=== PATIENT | male | born 1975 | race Caucasian/White ===

== ENCOUNTER 2021-03-09 14:05 | Observation (INO) ==
[2021-03-09] MEDS ORDERED: PANTOPRAZOLE 40 MG VIAL IV STA (15:16)
[2021-03-09] MEDS ORDERED: ONDANSETRON 4 MG/2 ML VIAL IV STA (15:16)
[2021-03-09] MEDS ORDERED: METOCLOPRAMIDE 10 MG/2 ML VIAL IV STA (15:16)
[2021-03-09] MEDS ORDERED: MORPHINE 4 MG/1 ML VIAL IV STA ×2 (15:16→17:18)
[2021-03-09] MEDS ORDERED: SODIUM CHLORIDE 0.9% 1,000 ML IV STA (15:16)
[2021-03-09 15:34] LABS: Basophils % 0.4 % (0.0-0.8); Eosinophils # 0.1 10*3/uL (0.0-0.87); Eosinophils % 0.6 % (0.00-10.9); Hematocrit 46.2 VOL% (42.0-52.0); Hemoglobin 15.4 GM/DL (14.0-18.0); Immature Granulocytes % 0.4 %; Immature Granulocytes Absolute 0.04 #; Lymphocytes # 1.3 10*3/uL (1.4-4.0); Lymphocytes % 11.8 % (21.2-54.2); Mean Corpuscular HGB Conc 33.3 GM/DL (32-36); Mean Corpuscular Volume 89.2 FL (87-102); Mean Platelet Volume 9.7 FL (9.6-12.0); Monocytes % 5.8 % (1.7-12.7); Platelet Count 322 T/CUMM (130-400); Red Blood Count 5.18 MC/CUMM (3.8-5.5); Red Cell Distribution Width 11.9 % (9.3-17.3); White Blood Count 11.1 T/CUMM (4-12)
[2021-03-09 15:39] LABS: Bilirubin,Urine Negative (Negative); Blood, Urine Large mg/dL (Negative); Glucose,Urine (UA) Negative (Negative); Ketones,Urine Negative (Negative); Mucus,Urine Occasional /LPF (Occasional); Nitrite,Urine Negative (Negative); Protein,Urine 30 MG/DL; RBC,Urine 2553 /HPF (0-4); Squamous Epithelial Cell,Urine Occasional /HPF (0-10); Urine Appearance Slightly Hazy (Clear); Urine Color Yellow (Yellow); Urine Specific Gravity 1.018 (1.001-1.035)
[2021-03-09 15:53] LABS: Alanine Aminotransferase 34 U/L (16-61); Albumin 3.8 G/DL (3.4-5.0); Alkaline Phosphatase 68 U/L (45-117); Aspartate Amino Transferase 20 U/L (0-37); Bilirubin,Total < 0.39 MG/DL (0.2-1.0); Blood Urea Nitrogen 17 MG/DL (7-18); Carbon Dioxide 28 MMOL/L (21-32); Estimated Glom Filtration Rate 139 ML/MIN; Glucose 113 MG/DL (74-106); Osmolality,Calculated 275.8 MOS/KG (273-304); Potassium 3.8 MMOL/L (3.5-5.1); Sodium 137 MMOL/L (136-145); Total Protein 7.2 G/DL (6.4-8.2)
[2021-03-09 17:43] LABS: Risk Ratio 5.88; VLDL Cholesterol 32.2 MG/DL
[2021-03-09] MEDS ORDERED: hydrALAZINE 20 MG/1 ML VIAL IV PRN (17:47)
[2021-03-09] MEDS ORDERED: GLUCAGON 1 MG VIAL IM PRN (17:47)
[2021-03-09] MEDS ORDERED: diphenhydrAMINE CAP 25 MG CAPSULE PO PRN (17:47)
[2021-03-09] MEDS ORDERED: ONDANSETRON 4 MG/2 ML VIAL IV PRN (17:47)
[2021-03-09] MEDS ORDERED: PROMETHAZINE 25 MG/1 ML VIAL IM PRN (17:47)
[2021-03-09] MEDS ORDERED: DEXTROSE 50% 25 GM/50 ML VIAL IV PRN (17:47)
[2021-03-09] MEDS: SODIUM CHLORIDE 0.9% 1,000 ML IV SCH (23:03)
[2021-03-10 05:20] LABS: Basophils # 0.1 10*3/uL (0.0-0.2); Basophils % 0.5 % (0.0-0.8); Eosinophils # 0.2 10*3/uL (0.0-0.87); Eosinophils % 2.2 % (0.00-10.9); Hematocrit 41.7 VOL% (42.0-52.0); Hemoglobin 13.7 GM/DL (14.0-18.0); Immature Granulocytes % 0.4 %; Immature Granulocytes Absolute 0.04 #; Lymphocytes # 3.5 10*3/uL (1.4-4.0); Lymphocytes % 34.2 % (21.2-54.2); Mean Corpuscular HGB Conc 32.9 GM/DL (32-36); Mean Corpuscular Volume 91.4 FL (87-102); Mean Platelet Volume 9.6 FL (9.6-12.0); Monocytes % 8.8 % (1.7-12.7); Neutrophils % 53.9 % (38.7-73.9); Platelet Count 271 T/CUMM (130-400); Red Blood Count 4.56 MC/CUMM (3.8-5.5); Red Cell Distribution Width 11.9 % (9.3-17.3); White Blood Count 10.4 T/CUMM (4-12)
[2021-03-10 05:51] LABS: Albumin 3.1 G/DL (3.4-5.0); Bilirubin,Total 0.4 MG/DL (0.2-1.0); Calcium 8.2 MG/DL (8.5-10.1); Osmolality,Calculated 278.4 MOS/KG (273-304); Potassium 3.3 MMOL/L (3.5-5.1); Total Protein 6.2 G/DL (6.4-8.2)
[2021-03-10] MEDS: SODIUM CHLORIDE 0.9% 1,000 ML IV SCH ×4 (06:21→22:11)
[2021-03-10] MEDS: PANTOPRAZOLE 40 MG VIAL IV SCH (08:36)
[2021-03-10] MEDS: POTASSIUM CHLORIDE 20 MEQ TABLET PO PRN ×3 (08:38→18:20)
[2021-03-10] MEDS: MORPHINE 4 MG/1 ML VIAL IV PRN ×2 (16:16→23:28)
[2021-03-10] MEDS ORDERED: ATORVASTATIN 20 MG TABLET PO SCH (21:00)
[2021-03-11] MEDS ORDERED: HYDROmorphone 2 MG/1 ML VIAL IV PRN (00:24)
[2021-03-11 04:34] LABS: Basophils % 0.3 % (0.0-0.8); Eosinophils # 0.1 10*3/uL (0.0-0.87); Eosinophils % 1.4 % (0.00-10.9); Hemoglobin 13.6 GM/DL (14.0-18.0); Immature Granulocytes % 0.3 %; Immature Granulocytes Absolute 0.03 #; Lymphocytes # 2.3 10*3/uL (1.4-4.0); Mean Corpuscular Volume 89.3 FL (87-102); Mean Platelet Volume 9.8 FL (9.6-12.0); Monocytes % 8.4 % (1.7-12.7); Neutrophils % 64.6 % (38.7-73.9); Platelet Count 257 T/CUMM (130-400); Red Blood Count 4.48 MC/CUMM (3.8-5.5); Red Cell Distribution Width 11.8 % (9.3-17.3); White Blood Count 9.1 T/CUMM (4-12)
[2021-03-11 04:53] LABS: Bilirubin,Total 0.7 MG/DL (0.2-1.0); Osmolality,Calculated 275.5 MOS/KG (273-304); Potassium 3.7 MMOL/L (3.5-5.1); Total Protein 5.9 G/DL (6.4-8.2)
[2021-03-11] MEDS: SODIUM CHLORIDE 0.9% 1,000 ML IV SCH (06:08)
[2021-03-11] MEDS: PANTOPRAZOLE 40 MG VIAL IV SCH (10:23)
[2021-03-11] MEDS ORDERED: ACETAMINOPHEN 500 MG TABLET PO PRN (10:27)
[2021-03-11 15:52] VITALS: BP 118/72
== END 2021-03-11 16:22 | disposition home or self-care (01) ==
LOC: N.EDINP 14:05 → N.ED 14:05 → SUATTDRO 18:35 → N.EDINP 19:30 → N.5E 20:06
PROVIDERS: ADMIT Internal Medicine; ATTEND Internal Medicine

== ENCOUNTER 2022-09-19 05:55 | Inpatient (IN) ==
[2022-09-19] MEDS ORDERED: MIDAZOLAM 2 MG/2 ML VIAL ONE ×2 (05:59→07:27)
[2022-09-19] MEDS ORDERED: fentaNYL 100 MCG/2 ML VIAL ONE (05:59)
[2022-09-19] MEDS ORDERED: VANCOMYCIN INJ 1,000 MG in SODIUM CHLORIDE 0.9% 250 ML IV ONE (06:00)
[2022-09-19] MEDS ORDERED: DEXAMETHASONE 4 MG/1 ML VIAL ONE (06:05)
[2022-09-19] MEDS ORDERED: LIDOCAINE 1% 5 ML VIAL ONE (06:05)
[2022-09-19] MEDS ORDERED: BUPIVACAINE MPF 0.25% 30 ML VIAL ONE (06:05)
[2022-09-19] MEDS ORDERED: FAMOTIDINE 20 MG TABLET PO ONE (06:18)
[2022-09-19] MEDS ORDERED: ACETAMINOPHEN 500 MG TABLET PO ONE (06:22)
[2022-09-19] MEDS ORDERED: GABAPENTIN 400 MG CAPSULE PO ONE (06:22)
[2022-09-19] MEDS ORDERED: SCOPOLAMINE 1.5 MG PATCH TRANSDERM ONE ×2 (06:22→06:25)
[2022-09-19] MEDS ORDERED: GABAPENTIN 400 MG CAPSULE ONE (06:25)
[2022-09-19] MEDS ORDERED: ACETAMINOPHEN 500 MG TABLET ONE (06:25)
[2022-09-19] MEDS ORDERED: propofoL 200 MG/20 ML VIAL IV ONE (06:28)
[2022-09-19] MEDS ORDERED: buprenorphine HCL 0.3 MG/ML VIAL ONE (06:28)
[2022-09-19] MEDS ORDERED: LACTATED RINGERS 1,000 ML IV SCH (06:30)
[2022-09-19 06:41] LABS: PT Patient Result 11.1 SECS (10.1-12.1); Partial Thromboplastin Time 27.6 SECS (23.7-32.9)
[2022-09-19] MEDS ORDERED: MORPHINE 2 MG/1 ML SYRINGE IV PRN ×2 (07:09→07:18)
[2022-09-19] MEDS ORDERED: LACTULOSE 20 GM/30 ML UDCUP PO PRN (07:09)
[2022-09-19] MEDS ORDERED: BISACODYL 10 MG SUPP RECTAL PRN (07:09)
[2022-09-19] MEDS ORDERED: ONDANSETRON 4 MG/2 ML VIAL IV PRN (07:09)
[2022-09-19] MEDS ORDERED: MAGNESIUM HYDROXIDE SUSP 30 ML UDCUP PO PRN (07:09)
[2022-09-19] MEDS ORDERED: TEMAZEPAM 7.5 MG CAPSULE PO PRN (07:09)
[2022-09-19] MEDS ORDERED: PROMETHAZINE 25 MG/1 ML VIAL IM PRN (07:09)
[2022-09-19] MEDS ORDERED: diphenhydrAMINE CAP 25 MG CAPSULE PO PRN (07:09)
[2022-09-19] MEDS ORDERED: TRANEXAMIC ACID 1,000 MG/10 ML VIAL ONE (07:50)
[2022-09-19] MEDS ORDERED: PHENYLEPHRINE 1 MG/10 ML SYRINGE IV ONE (07:56)
[2022-09-19] MEDS ORDERED: ONDANSETRON 4 MG/2 ML VIAL ONE (08:42)
[2022-09-19] MEDS ORDERED: LACTATED RINGERS 1,000 ML IV ONE (08:48)
[2022-09-19] MEDS ORDERED: SODIUM CHLORIDE 0.9% 250 ML IV ONE (08:48)
[2022-09-19] MEDS ORDERED: LISDEXAMFETAMINE 50 MG PO SCH (09:00)
[2022-09-19 09:23] LABS: Calcium Oxalate Crystals,Urine Occasional /HPF (Few); Hyaline Casts,Urine 13 /LPF (0-3); Mucus,Urine Occasional /LPF (Occasional); RBC,Urine 2 /HPF (0-4); Urine Color Yellow (Yellow)
[2022-09-19 09:24] LABS: Bilirubin,Urine Small mg/dL (Negative); Blood, Urine Trace mg/dL (Negative); Glucose,Urine (UA) Negative (Negative); Ketones,Urine Trace mg/dL (Negative); Nitrite,Urine Negative (Negative); Protein,Urine 30 mg/dL (Negative); Urine Appearance Clear (Clear); Urine Specific Gravity > 1.030 (1.001-1.035)
[2022-09-19] MEDS: amLODIPine 5 MG TABLET PO SCH (10:48)
[2022-09-19] MEDS: buPROPion 100 MG TABLET PO SCH (11:16)
[2022-09-19] MEDS: DOCUSATE SODIUM 100 MG CAPSULE PO SCH ×2 (11:16→20:58)
[2022-09-19] MEDS: FAMOTIDINE 20 MG TABLET PO SCH ×2 (11:18→20:58)
[2022-09-19] MEDS: ceFAZolin 2,000 MG/50 ML DUPLEX IV SCH ×2 (13:35→22:54)
[2022-09-19 14:27] LABS: Arterial Base Excess iSTAT 0 MMOL/L (-2.5-2.5); Arterial Bicarbonate iSTAT 27.1 MMOL/L (20-26); Arterial O2 Saturation iSTAT 91 % (95-100); Arterial PCO2 iSTAT 55 MM HG (35-48); Arterial PO2 iSTAT 67 MM HG (80-95); Arterial Total CO2 iSTAT 29 MMO/L (23-27); Arterial pH iSTAT 7.303 (7.35-7.45)
[2022-09-19] MEDS: FONDAPARINUX 2.5 MG/0.5 ML SYRINGE SUBCUT SCH (20:57)
[2022-09-19] MEDS: ATORVASTATIN 20 MG TABLET PO SCH (20:58)
[2022-09-20 06:41] LABS: Basophils % 0.2 % (0.0-0.8); Eosinophils # 0.1 10*3/uL (0.0-0.87); Eosinophils % 0.6 % (0.00-10.9); Hematocrit 38.5 VOL% (42.0-52.0); Hemoglobin 12.7 GM/DL (14.0-18.0); Immature Granulocytes % 0.5 %; Immature Granulocytes Absolute 0.07 #; Lymphocytes # 2.3 10*3/uL (1.4-4.0); Lymphocytes % 17.9 % (21.2-54.2); Mean Corpuscular Volume 90.8 FL (87-102); Mean Platelet Volume 9.9 FL (9.6-12.0); Monocytes # 1.1 10*3/uL (0.11-0.8); Monocytes % 8.6 % (1.7-12.7); Neutrophils % 72.2 % (38.7-73.9); Platelet Count 240 T/CUMM (130-400); Red Blood Count 4.24 MC/CUMM (3.8-5.5); Red Cell Distribution Width 12.4 % (9.3-17.3); White Blood Count 12.7 T/CUMM (4-12)
[2022-09-20 06:58] LABS: Calcium 8.1 MG/DL (8.5-10.1); Osmolality,Calculated 280.5 MOS/KG (273-304); Potassium 3.8 MMOL/L (3.5-5.1)
[2022-09-20] MEDS: DOCUSATE SODIUM 100 MG CAPSULE PO SCH ×2 (09:08→21:27)
[2022-09-20] MEDS: MELOXICAM 7.5 MG TABLET PO SCH (09:08)
[2022-09-20] MEDS: FAMOTIDINE 20 MG TABLET PO SCH ×2 (09:08→21:27)
[2022-09-20] MEDS: amLODIPine 5 MG TABLET PO SCH (09:08)
[2022-09-20] MEDS: FLUoxetine 20 MG CAPSULE PO SCH (09:08)
[2022-09-20] MEDS: buPROPion 100 MG TABLET PO SCH (09:09)
[2022-09-20] MEDS: FONDAPARINUX 2.5 MG/0.5 ML SYRINGE SUBCUT SCH (21:25)
[2022-09-20] MEDS: ATORVASTATIN 20 MG TABLET PO SCH (21:27)
[2022-09-21] MEDS: FAMOTIDINE 20 MG TABLET PO SCH (09:05)
[2022-09-21] MEDS: DOCUSATE SODIUM 100 MG CAPSULE PO SCH (09:05)
[2022-09-21] MEDS: amLODIPine 5 MG TABLET PO SCH (09:05)
[2022-09-21] MEDS: MELOXICAM 7.5 MG TABLET PO SCH (09:05)
[2022-09-21] MEDS: FLUoxetine 20 MG CAPSULE PO SCH (09:05)
[2022-09-21] MEDS: buPROPion 100 MG TABLET PO SCH (09:10)
[2022-09-21 11:11] VITALS: BP 153/84
== END 2022-09-21 13:30 | disposition home health service (06) | DRG 470 ==
LOC: N.SDSINP 05:55 → N.3E 09:59
PROVIDERS: ADMIT Orthopaedic Surgery; ATTEND Orthopaedic Surgery